=== PATIENT | male | born 1985 ===

== ENCOUNTER 2017-05-27 20:01 | Emergency (ER) | payer OTHER ==
[2017-05-27 20:35] VITALS: TEMP 98.6
[2017-05-27] MEDS ORDERED: Fluorescein 1 mg Ophthalmic Strip ONE (20:41)
[2017-05-27] MEDS ORDERED: Fluorescein 1 mg Ophthalmic Strip OD ONE (20:42)
--- NOTE | 2017-05-27 20:55 | C.PDOC ---
History Of Present Illness 31 year old male who presents to the ER for an evaluation of a possible metal foreign body in the right eye. Patient states he sustained injury to the right eye while working at home yesterday. Patient admits, developed slight sensitivity to the light today; denies blurred vision, double vision, denies eye discharge, denies pain or limitation on extraocular movement of Right eye, denies contact use. Ambulate to Ed for evaluation, not in any apparent distress. Time Seen by Provider: 05/27/17 20:17 Chief Complaint (Nursing): Eye Problem History Per: Patient History/Exam Limitations: no limitations Onset/Duration Of Symptoms: Days Current Symptoms Are (Timing): Still Present Injury To Eye?: Yes Associated Symptoms: FB Sensation. denies: Decreased Vision, Discharge From Eye Recent travel outside of the [place]: No Past Medical History Reviewed: Historical Data, Nursing Documentation, Vital Signs Vital Signs: Last Vital Signs Temp 98.6 F 05/27/17 20:16 Pulse 72 05/27/17 21:24 Resp 20 05/27/17 21:24 BP 138/82 05/27/17 21:24 Pulse Ox 98 05/27/17 21:29 - Medical History PMH: No Chronic Diseases Surgical History: No Surg Hx Family History: States: Unknown Family Hx - Social History Hx Alcohol Use: Yes Hx Substance Use: No - Immunization History Hx Tetanus Toxoid Vaccination: No (more than 10 years) Review Of Systems Except As Marked, All Systems Reviewed And Found Negative. Constitutional: Negative for: Fever, Chills Eyes: Positive for: Other ((+) FB sensation). Negative for: Vision Change ENT: Negative for: Throat Pain Respiratory: Negative for: Cough Musculoskeletal: Negative for: Neck Pain Neurological: Negative for: Weakness, Numbness, Altered Mental Status, Headache , Dizziness Physical Exam - Physical Exam Appears: Well, Non-toxic, No Acute Distress Skin: Normal Color, Warm Eye(s): bilateral: PERRL, right: Other ((+) corneal FB noted at 12 o'clock with fluoresceine uptake, mild conjunctival injection. No eye discahrges. No periorbital edema or erythema.), left: Normal Inspection Oral Mucosa: Moist Extremity: Normal ROM Neurological/Psych: Oriented x3, Normal Speech ED Course And Treatment O2 Sat by Pulse Oximetry: 98 Pulse Ox Interpretation: Normal Progress Note: On re-eavl, pt is afebrile, hemodynamicaly stable. Non-toxic. VA: R20/40, L20/20, B/L20/25 without correction. Right eye: exam c/w corneal foreign body. No pain or limitation on extraocular movement, no periorbital edema or erythema. Attempt to remove Right corneal FB unsuccessfull. Tetanus/ opht abx oitm applied. Eye patch applied to Right eye. Pt advised to F/u with opht in 1-2 days for re-eval without fail. Return if any worsening or new changes. Disposition Counseled Patient/Family Regarding: Diagnosis, Need For Followup, Rx Given - Disposition Referrals: Daniel Glynn MD [Staff Provider] - Disposition: HOME/ ROUTINE Disposition Time: 20:53 Condition: STABLE Additional Instructions: Eye patch APPLY EYE CREAM "TOBRADEX" TO RIGHT EYE EVERY 4 HOURS TO RIGHT EYE FOR 7 DAYS Follow up with Ophthalmology in 1-2 days for re-evaluation. Return to ED if any worsening or new changes. Instructions: Corneal Abrasion (ED), Eye Foreign Body (ED) Print Language: NORTHERN IRISH - Clinical Impression Clinical Impression: Corneal foreign body - Scribe Statement The provider has reviewed the documentation as recorded by the Scribe Daniel Medeiros All medical record entries made by the Scribe were at my direction and personally dictated by me. I have reviewed the chart and agree that the record accurately reflects my personal performance of the history, physical exam, medical decision making, and the department course for this patient. I have also personally directed, reviewed, and agree with the discharge instructions and disposition.
[2017-05-27] MEDS ORDERED: Tobramycin/Dexamethasone OPHT OINT OD STA (20:57)
[2017-05-27] MEDS ORDERED: Tobramycin 0.3% OPH OINT ONE (21:07)
[2017-05-27 21:25] VITALS: BP 138/82; PULSE 72; RESP 20
[2017-05-27 21:27] VITALS: O2SAT 98
== END 2017-05-27 21:25 | disposition home or self-care (01) ==
LOC: C.ER 20:01
DX: T15.01XA Foreign body in cornea, right eye, initial encounter (principal); X58.XXXA Exposure to other specified factors, initial encounter; Y92.009 Unspecified place in unspecified non-institutional (private) residence as the place of occurrence of the external cause

== ENCOUNTER 2018-03-09 11:00 | Emergency (ER) | payer OTHER ==
[2018-03-09 11:13] VITALS: O2SAT 99
--- NOTE | 2018-03-09 12:18 | C.PDOC ---
History Of Present Illness 32 year old male presents to the ER with a complaint of right shoulder pain for the past 2 days. 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 Denies weakness, numbness, or Hx of shoulder pain. Time Seen by Provider: 03/09/18 11:11 Chief Complaint (Nursing): Upper Extremity Problem/Injury History Per: Patient History/Exam Limitations: no limitations Onset/Duration Of Symptoms: Days Current Symptoms Are (Timing): Still Present Exacerbating Factor(s): Strenuous Use Of Affected Area Recent travel outside of the [place]: No Past Medical History Reviewed: Historical Data, Nursing Documentation, Vital Signs Vital Signs: Last Vital Signs Temp 98.4 F 03/09/18 12:23 Pulse 77 03/09/18 12:23 Resp 18 03/09/18 12:23 BP 125/78 03/09/18 12:23 Pulse Ox 99 03/09/18 12:24 Family History: States: Unknown Family Hx - Social History Hx Alcohol Use: Yes Hx Substance Use: No - Immunization History Hx Tetanus Toxoid Vaccination: No (more than 10 years) Hx Influenza Vaccination: No Hx Pneumococcal Vaccination: No Review Of Systems Musculoskeletal: Positive for: Shoulder Pain Neurological: Negative for: Weakness, Numbness Physical Exam - Physical Exam Appears: Non-toxic Skin: Normal Color, Warm, Dry Head: Atraumatic, Normacephalic Eye(s): bilateral: Normal Inspection Extremity: Normal ROM (x4), Tenderness (Right posterior shoulder), No Deformity , No Swelling Pulses: Left Radial: Normal, Right Radial: Normal Neurological/Psych: Oriented x3, Normal Speech, Normal Motor, Normal Sensation ED Course And Treatment O2 Sat by Pulse Oximetry: 99 (Room air) Pulse Ox Interpretation: Normal - Other Rad Right shoulder x-ray X-Ray: Interpreted by Me, Viewed By Me Interpretation: No acute fractures or dislocation. Medical Decision Making Medical Decision Making: Motrin administered for pain. Right shoulder x-ray ordered. Disposition - Disposition Referrals: [facility] [Outside] Disposition: HOME/ ROUTINE Disposition Time: 12:22 Condition: GOOD Additional Instructions: Follow up with the medical doctor within 1-2 days. Return if worsened. 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 - Scribe Statement The provider has reviewed the documentation as recorded by the Scribe Daniel Medeiros All medical record entries made by the Scribe were at my direction and personally dictated by me. I have reviewed the chart and agree that the record accurately reflects my personal performance of the history, physical exam, medical decision making, and the department course for this patient. I have also personally directed, reviewed, and agree with the discharge instructions and disposition.
[2018-03-09 12:24] VITALS: BP 125/78; PULSE 77; RESP 18; TEMP 98.4
--- NOTE | 2018-03-09 12:42 | RAD ---
PROCEDURE: Radiographs of the Left Shoulder HISTORY: Shoulder pain, injury COMPARISON: No prior. FINDINGS: BONES: Normal. No fracture. Questionable small osteoma adjacent to the superior margin of the glenoid. JOINTS: Normal. Glenohumeral and acromioclavicular joints preserved. No osteoarthritis. SOFT TISSUES: Normal. OTHER FINDINGS: None. IMPRESSION: No evidence of acute displaced fracture nor dislocation
== END 2018-03-09 12:31 | disposition home or self-care (01) ==
LOC: C.ER 11:00
DX: S43.401A Unspecified sprain of right shoulder joint, initial encounter (principal); X50.0XXA Overexertion from strenuous movement or load, initial encounter; Y93.H3 Activity, building and construction; Y92.89 Other specified places as the place of occurrence of the external cause; Y99.0 Civilian activity done for income or pay